=== PATIENT | male | born 1990 | race Caucasian/White ===

== ENCOUNTER 2018-09-25 13:34 | Day surgery (SDC) | payer OTHER, BC ==
[2018-09-25] MEDS ORDERED: FENTAnyl 50 MCG/ML VIAL IV ×2 (15:30)
[2018-09-25] MEDS ORDERED: EPHEDrine 25 MG/5 ML SYG IV (15:30)
[2018-09-25] MEDS ORDERED: HYDROmorphONE 1 MG/5 ML IV SYRINGE IV (15:30)
[2018-09-25] MEDS ORDERED: LABETALOL HCL 20MG INJ IV (15:30)
[2018-09-25] MEDS ORDERED: MIDAZOLAM 1 MG/ML 2 ML INJ IV (15:30)
[2018-09-25] MEDS ORDERED: IPRATROPIUM (NEB) 0.5 MG/2.5 ML AMP HHN (15:30)
[2018-09-25] MEDS ORDERED: ALBUTEROL 0.083% (NEB) 2.5 MG/3 ML AMP HHN (15:30)
[2018-09-25] MEDS ORDERED: hydrALAzine 20 MG INJ IV (15:30)
[2018-09-25] MEDS ORDERED: OXYCODONE/ACETAMINOPHEN (5/325) TAB PO (15:30)
[2018-09-25] MEDS ORDERED: TRIMETHOBENZAMIDE 100 MG/ML VIAL IM (15:30)
[2018-09-25] MEDS ORDERED: DIPHENHYDRAMINE 50 MG INJ IV (15:30)
[2018-09-25] MEDS: LACTATED RINGER'S 1,000 ML IV (15:45)
[2018-09-25] MEDS: ROPIVACAINE 0.5 % 30 ML VIAL (15:49)
[2018-09-25] MEDS: LIDOCAINE 1% (MPF) 30 ML INJ (15:50)
[2018-09-25] MEDS ORDERED: GLYCOPYRROLATE 0.4 MG INJ (16:39)
[2018-09-25] MEDS ORDERED: NEOSTIGMINE 3 MG/3 ML SYRINGE (16:39)
[2018-09-25] MEDS ORDERED: ROCURONIUM 50 MG INJ (16:39)
[2018-09-25] MEDS ORDERED: CEFAZOLIN 1 GM INJ (16:39)
[2018-09-25] MEDS ORDERED: PROPOFOL 20 ML (16:39)
[2018-09-25] MEDS ORDERED: ONDANSETRON 4 MG INJ (16:41)
[2018-09-25] MEDS ORDERED: MIDAZOLAM 1 MG/ML 2 ML INJ (16:41)
[2018-09-25] MEDS ORDERED: FENTAnyl 50 MCG/ML VIAL ×3 (16:41→18:15)
[2018-09-25] MEDS ORDERED: DEXAMETHASONE 4 MG/ML 5 ML INJ (16:41)
[2018-09-25] MEDS ORDERED: KETOROLAC 30 MG INJ (17:12)
[2018-09-25] MEDS ORDERED: ROPIVACAINE 0.5 % 30 ML VIAL (17:32)
[2018-09-25] MEDS: NEOMYC/POLYMYX/BACIT 30 GM OINT (17:48)
[2018-09-25] MEDS ORDERED: SUGAMMADEX SODIUM 200 MG/2 ML VIAL IV (18:01)
[2018-09-25] MEDS ORDERED: METOCLOPRAMIDE 10 MG INJ (18:25)
[2018-09-25] MEDS: HYDROmorphONE 1 MG/5 ML IV SYRINGE IV ×2 (18:49→18:54)
[2018-09-25] MEDS: MEPERIDINE 25 MG INJ IV (18:49)
[2018-09-25] MEDS: ONDANSETRON 4 MG INJ IV (18:49)
[2018-09-25] MEDS: OXYCODONE/ACETAMINOPHEN (5/325) TAB PO (19:10)
[2018-09-25] MEDS: FENTAnyl 50 MCG/ML VIAL IV (19:10)
== END 2018-09-25 20:10 | disposition home or self-care (01) ==
LOC: SDS 13:34
DX: S83.211A Bucket-handle tear of medial meniscus, current injury, right knee, initial encounter (principal); E66.9 Obesity, unspecified; X58.XXXA Exposure to other specified factors, initial encounter; Y93.89 Activity, other specified; Y92.89 Other specified places as the place of occurrence of the external cause; Y99.8 Other external cause status
CPT/HCPCS: 29881